=== PATIENT | female | born 1995 | race Two or more races ===

== ENCOUNTER 2025-05-10 13:57 | Emergency (ER) | payer OTHER ==
[~2025-05-10] VITALS: Ht 157.5 cm; Wt 54.4 kg
[2025-05-10] MEDS ORDERED: VERAPAMIL ER120 MG PO (14:05)
== END 2025-05-10 15:37 | disposition home or self-care (01) ==
LOC: ER 13:57
DX: R00.2 Palpitations (principal); Z91.014 Allergy to mammalian meats